=== PATIENT | female | born 1975 | race Caucasian/White ===

== ENCOUNTER 2024-03-02 08:41 | Emergency (ER) | payer MEDICAID, OTHER ==
[~2024-03-02] VITALS: Ht 152.4 cm; Wt 80.4 kg
[2024-03-02 09:10] VITALS: BP 101/60; PULSE 68; RESP 17; TEMP 98.1; O2SAT 100
[2024-03-02 11:01] VITALS: BP 104/33; PULSE 61; RESP 20; TEMP 98.2; O2SAT 98
[2024-03-02] MEDS ORDERED: IBUP-2213 PO (11:29)
[2024-03-02] MEDS ORDERED: ACET-8905 PO (11:29)
[2024-03-02] MEDS: KETOROLAC 60 MG/2 ML VIAL IM ONE (11:37)
== END 2024-03-02 11:44 | disposition home or self-care (01) ==
LOC: MED 08:41
DX: S70.12XA Contusion of left thigh, initial encounter (principal); Z90.710 Acquired absence of both cervix and uterus; W54.0XXA Bitten by dog, initial encounter; Y93.89 Activity, other specified; Y92.89 Other specified places as the place of occurrence of the external cause; Y99.8 Other external cause status
CPT/HCPCS: 90471; 90715; 96372; 99284; J1885

== ENCOUNTER 2024-04-18 14:28 | Emergency (ER) | payer OTHER ==
[~2024-04-18] VITALS: Ht 152.4 cm; Wt 79.8 kg
[~2024-04-18 14:28] MED LIST: ACET-8905 PO; ACET500T99 PO; AMOX1TAB8 PO; IBUP-2213 PO; MAG-27 PO; METH-1681 PO; ONDA-188 PO
[2024-04-18 14:47] VITALS: BP 121/68; PULSE 72; RESP 16; TEMP 97.9; O2SAT 99
[2024-04-18] MEDS ORDERED: ACET500T99 PO (18:06)
[2024-04-18] MEDS ORDERED: OXYM20SP1 NS (18:06)
[2024-04-18] MEDS: ACETAMINOPHEN EXTRA STRENGTH 500 MG TAB PO ONE (18:15)
== END 2024-04-18 18:45 | disposition home or self-care (01) ==
LOC: MED 14:28
DX: R04.0 Epistaxis (principal); R51.9 Headache, unspecified; R03.0 Elevated blood-pressure reading, without diagnosis of hypertension; Z85.42 Personal history of malignant neoplasm of other parts of uterus; Z79.899 Other long term (current) drug therapy
CPT/HCPCS: 99282